=== PATIENT | male | born 1975 | race Caucasian/White ===

== ENCOUNTER 2024-05-31 19:49 | Observation (INO) | payer OTHER, SELFPAY ==
[2024-05-31] VITALS (10 sets, daily range): BP systolic 116–140; BP diastolic 80–85; PULSE 84–109; RESP 18; TEMP 36.9–37; O2SAT 96–98; BMI 25.0
[2024-05-31 20:28] LABS: Add Manual Diff / Slide Review NO; Basophils Absolute Auto 100 /uL (0-100); Basophils Percent Auto 0.5 % (0-2); Eosinophils Absolute Auto 200 /uL (0-450); Eosinophils Percent Auto 1.5 % (2-4); Hematocrit 46.1 % (41-53); Hemoglobin 15.6 g/dL (13.5-17.5); Lymphocytes Absolute Auto 1900 /uL (1100-4500); Mean Corpuscular HGB Conc 33.8 % (30-36); Mean Corpuscular Hemoglobin 30.1 PG (26-34); Mean Corpuscular Volume 88.9 fL (80-100); Monocytes Absolute Auto 700 /uL (0-900); Monocytes Percent Auto 5.3 % (3-14); Neutrophils Absolute Auto 9700 /uL (1500-7000); Neutrophils Percent Auto 77.7 % (50-75); Platelet Count 445 X10^3/uL (150-400); Red Blood Cell Count 5.18 X10^6/uL (4.5-5.9); Red Cell Distribution Width 14.6 % (11.6-14.8); White Blood Cell Count 12.5 X10^3/uL (4.5-11.0)
[2024-05-31 20:33] LABS: Alanine Aminotransferase 32 IU/L (<50); Albumin 4.3 g/dL (3.5-5.0); Albumin Globulin Ratio 1.3 (1.0-2.8); Alkaline Phosphatase 69 U/L (38-126); Aspartate Aminotransferase 36 IU/L (17-59); BUN Creatinine Ratio 17.7 (6-22); Bilirubin Total 0.7 mg/dL (0.2-1.3); Blood Urea Nitrogen 14 mg/dL (9-20); Calcium 9.5 mg/dL (8.4-10.2); Carbon Dioxide 29 mmol/L (22-32); Chloride 100 mmol/L (98-107); Estimated Glomerular Filt Rate > 60 mL/min (>60); Globulin 3.3 g/dL (1.7-4.1); Glucose 115 mg/dL (70-100); HEMOLYSIS 17 (0-50); Lipase 44 U/L (23-300); Potassium 4.2 mmol/L (3.4-5.1); Sodium 136 mmol/L (137-145); Total Protein 7.6 g/dL (6.3-8.2)
[2024-05-31 20:34] LABS: Bacteria Urine Occasional (0-1); RBC Urine None Seen (0-5/HPF); Squamous Epithelial Cell Urine 0-1 /HPF (0-5/HPF); Urine Volume 10mL (spun); WBC Urine 0-1/HPF (0-5/HPF)
[2024-05-31 20:35] LABS: Culture Indicated Urine Cult Not Indicated; Mucus Urine 2+ (Negative)
--- NOTE | 2024-05-31 21:28 | PC.NURSE ---
Abdominal surgical sites are red and slightly raised, tender to touch
--- NOTE | 2024-05-31 21:43 | ED_ITS ---
HPI - Recheck/Abnormal Lab/Rx General Chief Complaint: Recheck/Abnormal Lab/Rx Stated Complaint: unable to eat or drink, needs fluids Time Seen by Provider: 05/31/24 20:30 Source: patient Mode of arrival: Ambulatory History of Present Illness HPI narrative: 49-year-old male with history of ankylosing spondylosis presents for nausea, vomiting, decreased p.o. intake. 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 He was still awaiting the results of the biopsy from the procedure to know if he will need to be on chemo or radiation. Patient states that he has been recovering well after his surgery and discharged home. Since getting home any time he eats or drinks he becomes very nauseous. He called his surgical team, who was concerned that he may be getting dehydrated and told him to come to the ER. Patient states he is still passing gas. Related Data Home Medications Medication Instructions Recorded Confirmed etanercept 50 mg/mL (1 mL) 25 mg SUBCUT ONCE 03/01/18 03/01/18 subcutaneous syringe (Enbrel) Previous Rx's Medication Instructions Recorded hydrocodone 5 mg-acetaminophen 325 1 tab PO Q4H PRN pain #10 tabs 03/02/18 mg tablet (Bivalve) Allergies Allergy/AdvReac Type Severity Reaction Status Date / Time amoxicillin AdvReac Mild rash Verified 03/01/18 20:10 NSAIDS (Non-Steroidal AdvReac Mild Headache Verified 05/31/24 20:02 Anti-Inflamma Patient History Medical History Ankylosing spondylitis Social History Smoking Status: Never smoker Smoking Status: Never smoker alcohol intake frequency: 0-2 drinks per day Substance Use Type: does not use Exam Initial Vital Signs Initial Vital Signs: Vital Signs Temperature 98.6 F 05/31/24 19:54 Pulse Rate 109 H 05/31/24 19:54 Respiratory Rate 18 05/31/24 19:54 Blood Pressure 134/81 05/31/24 19:54 Pulse Oximetry 97 05/31/24 19:54 Oxygen Delivery Method Room Air 05/31/24 19:54 Const: Awake, alert, no acute distress, nontoxic appearing Cardiac: regular rate, regular rhythm RESP: unlabored, clear bilaterally, no wheezing GI: Soft, generalized tenderness to palpation without rebound or guarding. Surgical sites clean, intact, dry Skin: Warm, Dry, surgical site clean, dry, intact Neuro: AO x3, CN II-XII grossly intact, moves all extremities Course Orders Ordered: ED Orders 05/31/24 20:10 Complete Blood Count AUTO DIFF Stat Comprehensive Metabolic Panel Stat Lipase Stat 05/31/24 20:15 Urine Microscopic Stat 05/31/24 20:18 Blood Culture Stat 05/31/24 21:44 CT abdomen pelvis w con Stat Ondansetron HCl (Ondansetron 4 Mg/2 Ml Inj) 4 mg IV NOW PRN PRN Reason: Nausea And Vomiting Ondansetron HCl (Ondansetron 4 Mg Odt) 4 mg PO NOW PRN PRN Reason: Nausea And Vomiting Discontinued Medications Sodium Chloride (Normal Saline 0.9%) 1,000 mls @ 1,000 mls/hr IV BOLUS ONE Stop: 05/31/24 22:52 Last Infusion: 05/31/24 22:54 Dose: Infused Documented By: Admin: 05/31/24 22:10 Dose: 1,000 mls/hr Documented By: Vital Signs Vital signs: Vital Signs - 8 hr 05/31/24 19:54 05/31/24 21:22 05/31/24 21:23 Temperature 98.6 F Pulse Rate 109 H 93 H 93 H Respiratory Rate 18 Blood Pressure 134/81 Pulse Oximetry 97 98 97 Oxygen Delivery Method Room Air Room Air 05/31/24 21:23 05/31/24 21:30 05/31/24 21:30 Temperature Pulse Rate 90 Respiratory Rate Blood Pressure 140/83 122/83 Pulse Oximetry 96 Oxygen Delivery Method 05/31/24 22:00 05/31/24 22:12 05/31/24 22:12 Temperature Pulse Rate 87 89 Respiratory Rate Blood Pressure 132/80 Pulse Oximetry 97 98 Oxygen Delivery Method 05/31/24 22:30 05/31/24 22:30 05/31/24 23:00 Temperature Pulse Rate 84 84 Respiratory Rate Blood Pressure 125/80 Pulse Oximetry 98 98 Oxygen Delivery Method Room Air 05/31/24 23:00 Temperature Pulse Rate Respiratory Rate Blood Pressure 125/85 Pulse Oximetry Oxygen Delivery Method MDM - Recheck/Abnormal Lab/Rx Lab Data 05/31/24 20:10 05/31/24 20:10 Labs: Lab Results 05/31/24 05/31/24 Range/Units 20:10 20:15 WBC 12.5 H (4.5-11.0) X10^3/uL RBC 5.18 (4.5-5.9) X10^6/uL Hgb 15.6 (13.5-17.5) g/dL Hct 46.1 (41-53) % MCV 88.9 (80-100) fL MCH 30.1 (26-34) PG MCHC 33.8 (30-36) % RDW 14.6 (11.6-14.8) % Plt Count 445 H (150-400) X10^3/uL Neut % (Auto) 77.7 H (50-75) % Lymph % (Auto) 15.0 L (25-40) % [place] % (Auto) 5.3 (3-14) % Eos % (Auto) 1.5 L (2-4) % Baso % (Auto) 0.5 (0-2) % Neut # (Auto) 9700 H (0588-9259) /uL Lymph # (Auto) 1900 (9175-4701) /uL [place] # (Auto) 700 (0-900) /uL Eos # (Auto) 200 (0-450) /uL Baso # (Auto) 100 (0-100) /uL Sodium 136 L (137-145) mmol/L Potassium 4.2 (3.4-5.1) mmol/L Chloride 100 (98-107) mmol/L Carbon Dioxide 29 (22-32) mmol/L BUN 14 (9-20) mg/dL Creatinine 0.79 (0.66-1.25) mg/dL Estimated GFR > 60 (>60) mL/min BUN/Creatinine Ratio 17.7 (6-22) Glucose 115 H (70-100) mg/dL Calcium 9.5 (8.4-10.2) mg/dL Total Bilirubin 0.7 (0.2-1.3) mg/dL AST 36 (17-59) IU/L ALT 32 (<50) IU/L Alkaline Phosphatase 69 (38-126) U/L Total Protein 7.6 (6.3-8.2) g/dL Albumin 4.3 (3.5-5.0) g/dL Globulin 3.3 (1.7-4.1) g/dL Albumin/Globulin Ratio 1.3 (1.0-2.8) Lipase 44 (23-300) U/L Urine RBC None seen (0-5/HPF) Urine WBC 0-1/hpf (0-5/HPF) Ur Squamous Epith Cells 0-1 /hpf (0-5/HPF) Urine Bacteria Occasional (0-1) (None) Urine Mucus 2+ H (Negative) Ur Culture Indicated? Cult not indicated Vol Urine Centrifuged 10ml (spun) Urine Dip Bedside Urine Glucose Negative Bedside Urine Bilirubin - Negative Bedside Urine Ketone +++ 80 Urine Specific [place] 1.025 Bedside Urine Occult Blood - Negative Bedside Urine pH 6.0 Bedside Urine Protein +/- 15 Bedside Urine Urobilinogen - Negative Bedside Urine Nitrite - Negative Bedside Urine Leukocytes - Negative Esterase Imaging Data CT scan - abdomen/pelvis: Radiologist's Impression: PROCEDURE: CT ABDOMEN PELVIS W CON INDICATIONS: N/V/ABD PAIN, R HEMICOLECTOMY 05/27 TECHNIQUE: After the administration of intravenous contrast, axial sections acquired from the lung bases to the pubic symphysis. Coronal and sagittal reformats were performed. For radiation dose reduction, the following was used: automated exposure control, adjustment of mA and/or kV according to patient size. COMPARISON: None. FINDINGS: Image quality: Diagnostic. Lower Chest: Bibasilar atelectasis. ABDOMEN: Liver: No solid mass. Gallbladder: No radiopaque gallstones or wall thickening. Biliary ducts: No biliary dilation. Pancreas: No ductal dilation. Spleen: Size is within normal limits. Adrenal Glands: No adrenal nodules. Kidneys and Ureters: No hydronephrosis. No solid mass. No complex renal cystic lesion which requires follow up. Stomach and Bowel: Proximal colon is surgically absent. Ileocolic anastomosis in the anterior right abdomen. Dilated loops small bowel upstream from the anastomosis. Consistent with small bowel obstruction. The stomach is not significantly distended. Peritoneum: Small volume of free fluid mostly adjacent to the liver and in the pelvis. Small volume trace free in rectus musculature Ventral Wall: No significant ventral hernia. Abdominal Nodes: No retroperitoneal or mesenteric adenopathy by size criteria. Vessels: Aorta and inferior vena cava are normal in size. PELVIS: Pelvic Organs: Unremarkable. Bladder: Not significantly distended. Air in the urinary bladder likely due to prior catheterization. Pelvic Nodes: No enlarged lymph nodes. Miscellaneous: No inguinal hernias are seen. Bones: No aggressive osseous abnormality. Ankylosis at the SI joints. IMPRESSION: 1. Small-bowel obstruction upstream from the ileocolic anastomosis. 2. Small volume free fluid is likely reactive. Small volume pneumoperitoneum likely postsurgical in nature. Comment: Findings were discussed with Amrita Price at 11:03 p.m. Dictated by: Constantino Ortiz M.D. on 05/31/2024 at 22:55 Approved by: Constantino Ortiz M.D. on 05/31/2024 at 23:04 MDM Narrative Medical decision making narrative: Well-appearing patient with 2 days of nausea and vomiting after bowel surgery. Abdomen is soft, no significant distention, appropriate tenderness to palpation based on patient's postoperative course. Laboratory work and imaging to be obtained. Laboratory work shows WBC count 12.5, hemoglobin 15.6, platelets 445, sodium 136, potassium 4.2, creatinine 0.79, normal liver enzymes. Urinalysis did have ketones present. CT of the abdomen and pelvis shows small bowel obstruction proximal to ileocolic anastomosis. Patient reassessed, resting comfortably in bed, able to wet his mouth ice chips. Patient informed of lab and imaging findings, recommended admission to hospital for further monitoring of his bowel obstruction. Patient reluctant to do NG tube unless necessary. Since he has not vomited once since he has been in the emergency department I feel like this is reasonable as long as he keeps NPO. Patient admitted to General surgery in stable condition. Discharge Plan Departure Patient Disposition: Admitted as Observation Clinical Impression: Complete obstruction of small intestine, History of malignant neoplasm of appendix Admit Date/Time: 05/31/24 23:09 Admit Provider: Rick Jimenes
[2024-05-31] MEDS: SODIUM CHLORIDE 0.9% 1,000 ML 1000 ML IV (22:10)
[2024-05-31] MEDS: SODIUM CHLORIDE 0.9% 1,000 ML 125 ML IV (23:22)
[2024-05-31] MEDS: ONDANSETRON 4 MG/2 ML INJ IV (23:52)
[2024-06-01 04:00] VITALS: BP 147/93; PULSE 89; RESP 18; TEMP 36.6; O2SAT 97
[2024-06-01] MEDS: MORPHINE 2 MG/ML INJ IV (05:57)
[2024-06-01 06:00] VITALS: BP 147/93; PULSE 89; RESP 18; TEMP 36.6; O2SAT 97
[2024-06-01] MEDS: ONDANSETRON 4 MG/2 ML INJ IV (06:09)
[2024-06-01] MEDS: SODIUM CHLORIDE 0.9% 1,000 ML 125 ML IV ×3 (07:45→23:39)
[2024-06-01 08:00] VITALS: BP 130/89; PULSE 87; RESP 16; TEMP 36.7; O2SAT 94
--- NOTE | 2024-06-01 09:30 | CM.DANOTE ---
Initial DCP Assessment Visit Note Reviewed EMR and team rounds for pt's medical status and updates. Met with pt at bedside to introduce self and role, pt was found to be alert/oriented, resting quietly in bed with the lights off. Pt resides independently at baseline in his own home with his /family. His will also plan to transport him back home once he's medically cleared for d/c. Payor: Colin Attending: Dr. Jimenes Pt is a 49 year-old M who presented to the ED last evening with c/o nausea/vomiting and unable to eat/drink without significant discomfort. He was recently diagnosed with appendicial cancer, had a R-hemicolectomy on 06/06/24 at the , during which the appendix was also removed. After coming home from surgery he began having trouble with eating/drinking without getting really nauseous. CT abd/pelvis showed a small bowel obstruction. Pt was made NPO in case of need for surgery, and is on conservative measures and monitoring at this time. He will have another surgical consult at some point today. DCP will continue to monitor for any further evolving needs prior to his d/c. Discharge Planning/Care Management CM Discharge Assessment Start: 06/01/24 09:27 Freq: Status: Active Protocol: Document 06/01/24 09:27 DPL (Rec: 06/01/24 09:30 DPL [id number]) Discharge Planning Assessment Assigned Physical Medicine Physician DOE Randle Advance Directives? No History Provided By Patient,Medical Record Has Patient been admitted in last 30 No days? Prior Living Arrangements House Household Members spouse Type of transporation used prior to Drives own vehicle admit Independent with ADL's Yes Is patient alert and oriented? Yes Comment N/A Comment No identified home d/c needs at this time. Barriers to Discharge No Discharge Plan Home Transportation Arrangement Spouse Referrals Initiated None needed Whiteboard Updated in Patient Room with Yes name and ext. # of Physical Medicine Physician Review Status In Process Please Provide Date Initial DC 06/01/24 Assessment Was Performed
[2024-06-01 16:00] VITALS: BP 137/90; PULSE 87; RESP 19; TEMP 36.6; O2SAT 96
[2024-06-01] MEDS: ACETAMINOPHEN 325 MG TABLET 650 MG PO (16:33)
--- NOTE | 2024-06-01 17:12 | PM.HP.1 ---
History of Present Illness History of Present Illness Date Patient Seen: 06/01/24 Time Patient Seen: 17:12 Chief complaint: unable to eat or drink, needs fluids Narrative: Jony is a 49 year old man who had a laparoscopic right hemicolectomy for appendiceal cancer last week at [facility]. He was discharged after 2 days. About 2 days ago he started to feel ?dehydrated? meaning he felt like his heart was racing and he was unable to drink enough fluids. He called his surgical team and they advised him to come to the emergency department here. He had a CT scan that was read as a small-bowel obstruction. He has been passing some gas but has minimal appetite and he did vomit this morning. [facility] Medical History Ankylosing spondylitis Social History household members: spouse Smoking Status: Never smoker alcohol intake: current Meds Home Medications and Allergies Home Medications Medication Instructions Recorded Confirmed Type etanercept 50 mg/mL (1 mL) 25 mg SUBCUT ONCE 03/01/18 06/01/24 History subcutaneous syringe (Enbrel) enoxaparin 40 mg/0.4 mL 40 mg SUBCUT BEDTIME 06/01/24 06/01/24 History subcutaneous syringe omeprazole 20 mg capsule,delayed 20 mg PO DAILY 06/01/24 06/01/24 History release sulfasalazine 500 mg 1,000 mg PO BID 06/01/24 06/01/24 History tablet,delayed release Allergies Allergy/AdvReac Type Severity Reaction Status Date / Time amoxicillin Allergy Mild rash Verified 06/01/24 11:13 NSAIDS (Non-Steroidal AdvReac Mild Headache Verified 05/31/24 20:02 Anti-Inflamma Exam Vital Signs (past 8 hours): - 06/01/24 16:00 Temperature 97.8 F Pulse Rate 87 Respiratory Rate 19 Blood Pressure 137/90 Pulse Oximetry 96 Oxygen Flow Rate 0 Oxygen Delivery Method Room Air Oxygen Flow Rate 0 Narrative Exam Narrative: Abdomen is soft No peritoneal signs There is some erythema around his surgical incisions which appears to be a reaction to Dermabond. Objective Labs 05/31/24 20:10 05/31/24 20:10 Labs: Laboratory Results - last 24 hr 05/31/24 05/31/24 20:10 20:15 WBC 12.5 H RBC 5.18 Hgb 15.6 Hct 46.1 MCV 88.9 MCH 30.1 MCHC 33.8 RDW 14.6 Plt Count 445 H Neut % (Auto) 77.7 H Lymph % (Auto) 15.0 L [place] % (Auto) 5.3 Eos % (Auto) 1.5 L Baso % (Auto) 0.5 Neut # (Auto) 9700 H Lymph # (Auto) 1900 [place] # (Auto) 700 Eos # (Auto) 200 Baso # (Auto) 100 Sodium 136 L Potassium 4.2 Chloride 100 Carbon Dioxide 29 BUN 14 Creatinine 0.79 Estimated GFR > 60 BUN/Creatinine Ratio 17.7 Glucose 115 H Calcium 9.5 Total Bilirubin 0.7 AST 36 ALT 32 Alkaline Phosphatase 69 Total Protein 7.6 Albumin 4.3 Globulin 3.3 Albumin/Globulin Ratio 1.3 Lipase 44 Urine RBC None seen Urine WBC 0-1/hpf Ur Squamous Epith Cells 0-1 /hpf Urine Bacteria Occasional (0-1) Urine Mucus 2+ H Ur Culture Indicated? Cult not indicated Vol Urine Centrifuged 10ml (spun) Assessment & Plan Assessment and plan (1) Ileus following gastrointestinal surgery: Status: Acute Plan Suspect ileus rather than small bowel obstruction based on his clinical picture and the CT scan. I recommend IV fluids and waiting for him to start passing more flatus before advancing diet. Time-Based Coding :: [TOTAL MINUTES] spent with patient and on the chart (including review of chart, obtaining history, exam, reviewing outside data, placing orders, documenting exam and treatment plan, and counseling patient) on [DATE]. Quality VTE Deep Vein Thrombosis/Pulmonary Embolism Present on Admission: No
[2024-06-01] MEDS: ENOXAPARIN 40 MG/0.4 ML SYRINGE SUBCUT (20:41)
[2024-06-01] MEDS: CALCIUM CARBONATE 500 MG TAB PO (20:41)
[2024-06-02] VITALS: BP 140/85; PULSE 85; RESP 19; TEMP 36.8; O2SAT 97
[2024-06-02] MEDS: PANTOPRAZOLE DR 20 MG TABLET PO (06:08)
[2024-06-02 06:32] LABS: Add Manual Diff / Slide Review NO; Basophils Absolute Auto 0 /uL (0-100); Basophils Percent Auto 0.3 % (0-2); Eosinophils Absolute Auto 200 /uL (0-450); Hematocrit 37.8 % (41-53); Hemoglobin 12.9 g/dL (13.5-17.5); Lymphocytes Absolute Auto 1800 /uL (1100-4500); Lymphocytes Percent Auto 21.7 % (25-40); Mean Corpuscular HGB Conc 34.2 % (30-36); Mean Corpuscular Hemoglobin 30.5 PG (26-34); Monocytes Absolute Auto 500 /uL (0-900); Monocytes Percent Auto 6.5 % (3-14); Neutrophils Absolute Auto 5700 /uL (1500-7000); Neutrophils Percent Auto 69.5 % (50-75); Platelet Count 327 X10^3/uL (150-400); Red Blood Cell Count 4.25 X10^6/uL (4.5-5.9); Red Cell Distribution Width 14.4 % (11.6-14.8); White Blood Cell Count 8.2 X10^3/uL (4.5-11.0)
[2024-06-02 06:46] LABS: BUN Creatinine Ratio 14.1 (6-22); Blood Urea Nitrogen 11 mg/dL (9-20); Calcium 8.3 mg/dL (8.4-10.2); Carbon Dioxide 26 mmol/L (22-32); Chloride 105 mmol/L (98-107); Estimated Glomerular Filt Rate > 60 mL/min (>60); Glucose 93 mg/dL (70-100); HEMOLYSIS < 15 (0-50); Sodium 135 mmol/L (137-145)
[2024-06-02] MEDS: ACETAMINOPHEN 325 MG TABLET 650 MG PO (07:54)
[2024-06-02] MEDS: SODIUM CHLORIDE 0.9% 1,000 ML 125 ML IV (07:55)
[2024-06-02 08:00] VITALS: BP 135/89; PULSE 79; RESP 16; TEMP 36.6; O2SAT 96
--- NOTE | 2024-06-02 10:46 | DIET.CONS ---
Dietary Consultation Note Admission Date: 05/31/2024 23:09 Assessment: 49 y M admitted for SBO. PMH of right hemicolectomy for appendiceal cancer last week, 05/27. Nutrition screened for low MNA. Met w/ pt and spouse at bedside. Reports normal appetite before surgery/no changes in intakes. Post surgery was on clears for day or 2 before advancing to low fiber diet. Between then and this admission has been having around 2 pre-surgery Ensure drinks and 1 small meal a day (scrambled eggs or mashed potatoes). Nutrition focused physical exam performed with no significant results. Assessed: temples, clavicle region, interosseous, buccal and orbital fat pads, tricep. Ht: 172.72 cm Wt: 74.843 kg BMI: 25.0 UBW: 77.27 kg per pt 2-3 weeks ago (-3% weight loss in 2 weeks, non-severe) Last BM: 05/31/24 (05/31/24 23:55) MNA: 9 Nick Score: 22 Diet: 06/01/24 Dinner Clear Liquid Diet Diet Modifications: 06/02/24 Lunch General (Regular) Diet Diet Modifications: Food Texture: Level 7 - Regular Liquid Consistency: Level 0 - Thin Nutrition Percent Meal Consumed 50% 06/02/24 08:00 Labs: RBC 4.25 X10^6/uL (4.5-5.9) L 06/02/24 06:21 Hgb 12.9 g/dL (13.5-17.5) L 06/02/24 06:21 Hct 37.8 % (41-53) L 06/02/24 06:21 Creatinine 0.78 mg/dL (0.66-1.25) 06/02/24 06:21 Nutrition Diagnosis: Inadequate oral intake r/t alterations in GI tract aeb SBO, <50% of estimated energy needs for 7-6 days Interventions: 1. ONS daily - now on general diet for lunch 2. Encouraged sufficient protein-energy intake as tolerated, reviewed protein sources Monitoring/Evaluations: po intakes, additional ONS as needed Electronically Signed by: Priya Thomas 06/02/24 10:46 Clinical Dietitian [address] [id number]
--- NOTE | 2024-06-02 11:11 | CM.DPC ---
DCP Cont. Reviewed EMR and team rounds for status updates. Pt is on clears today, will be advancing his diet as tolerated. Likely d/c home tomorrow if he is able to have bowel function and tolerate solids. Will continue to monitor.
--- NOTE | 2024-06-02 11:30 | P.PN_ITS ---
Subjective Subjective Date Patient Seen: 06/02/24 Time Patient Seen: 11:31 Interval history: +BM Tolerating clears Exam Vital Signs (past 8 hours): - 06/02/24 08:00 Temperature 97.9 F Pulse Rate 79 Respiratory Rate 16 Blood Pressure 135/89 Pulse Oximetry 96 Oxygen Flow Rate 0 Oxygen Delivery Method Room Air Oxygen Flow Rate 0 Narrative Exam Narrative: Gen-Adult man alert and oriented Abdomen-Soft Objective Labs 06/02/24 06:21 06/02/24 06:21 Labs: Laboratory Results - last 24 hr 06/02/24 06:21 WBC 8.2 RBC 4.25 L Hgb 12.9 L Hct 37.8 L MCV 89.0 MCH 30.5 MCHC 34.2 RDW 14.4 Plt Count 327 Neut % (Auto) 69.5 Lymph % (Auto) 21.7 L [place] % (Auto) 6.5 Eos % (Auto) 2.0 Baso % (Auto) 0.3 Neut # (Auto) 5700 Lymph # (Auto) 1800 [place] # (Auto) 500 Eos # (Auto) 200 Baso # (Auto) 0 Sodium 135 L Potassium 4.0 Chloride 105 Carbon Dioxide 26 BUN 11 Creatinine 0.78 Estimated GFR > 60 BUN/Creatinine Ratio 14.1 Glucose 93 Calcium 8.3 L PFSH Medical History Ankylosing spondylitis Social History household members: spouse Smoking Status: Never smoker alcohol intake: current Assessment & Plan Assessment & Plan narrative: 49M resolved post operative ileus -Advance diet as tolerated then DC home Time-Based Coding :: [TOTAL MINUTES] spent with patient and on the chart (including review of chart, obtaining history, exam, reviewing outside data, placing orders, documenting exam and treatment plan, and counseling patient) on [DATE]. Quality VTE Deep Vein Thrombosis/Pulmonary Embolism Present on Admission: No
--- NOTE | 2024-06-02 15:24 | PC.NURSE ---
Pt is dressed and ready for discharge home with Spouse. IV has been removed. Went over d/c instructions with Pt and Spouse-discussed d/c meds, time of last dose, reviewed stroke education, cautioned Pt to advance diet slowly as tolerated and to drink plenty of fluids to prevent constipation or dehydration. Pt to follow up as already scheduled. Pt denied further questions and was taken out via w/c by DRIVEMATIC MACHINE OPERATOR to POV with Spouse and all belongings.
== END 2024-06-02 16:22 | disposition home or self-care (01) | DRG 394 ==
LOC: ED 20:30 → AC 23:15
PROVIDERS: Admitting Provider Surgery; Emergency Provider Emergency Medicine; Referring Provider Emergency Medicine; Visit Provider Surgery
DX: K91.89 Other postprocedural complications and disorders of digestive system (principal); K56.7 Ileus, unspecified; C18.1 Malignant neoplasm of appendix
CPT/HCPCS: 36415; 74177; 80048; 80053; 81003; 81015; 83690; 85025; 87040; 96361; 96372; 96374; 96375; 99221; 99238; 99284; G0378; J1650; J2270; J2405; Q9967